=== PATIENT | female | born 1995 | race African-American/Black ===

== ENCOUNTER 2017-11-18 20:38 | Inpatient (IN) | payer OTHER ==
[~2017-11-18] VITALS: Ht 170.2 cm; Wt 68.0 kg
--- NOTE | 2017-11-18 20:50 | ED PSYCHIATRIC COMPLAINT ---
History of Present Illness General Chief Complaint: Psychiatric Related Complaint Stated Complaint: BIBA FOR +SI Source: patient, EMS, police Exam Limitations: clinical condition Vital Signs & Intake/Output Vital Signs & Intake/Output Vital Signs Date Time Temp Pulse Resp B/P B/P Pulse O2 O2 Flow FiO2 Mean Ox Delivery Rate 11/19 0020 99 18 132/71 99 Room Air 11/18 2300 98.5 114 18 138/79 98 Room Air 11/18 2047 98.2 102 22 152/89 100 Room Air ED Intake and Output 11/19 0000 11/18 1200 Intake Total Output Total Balance Patient 140 lb Weight Weight Estimated Measurement Method Allergies Coded Allergies: NO KNOWN ALLERGIES (11/18/17) Reconcile Medications Acetaminophen/Diphenhydramine (Tylenol Pm Ex-Strength Caplet) (Unknown Strength) TABLET (Unknown Dose) PO UNKNOWN (Reported) Triage Nurses Notes Reviewed? yes Onset: Gradual Duration: hour(s): Timing: recent history Severity: moderate Associated Symptoms: suicidal ideation, confusion HPI: 22 yo woman BIBA on police peer after ingestion of 2 bottles of nyquil this evening. Per police, she also took 8 ibuprofens sometime earlier in the afternoon. After taking the nyquil, she retreated to a [place] and contacted her friends. Her friends called 911. She presents altered, somnolent, but able to ambulate and easily aroused, with limited ability to articulate a history. Past History Travel History Traveled to [place] past 21 day No Medical History Any Pertinent Medical History? see below for history Psychiatric: bipolar disease, depression History of CDIFF: No Surgical History Surgical History: unobtainable Psychosocial History What is your primary language Slovak Family History Hx Contributory? No Review of Systems Review of Systems Constitutional: Denies: see HPI. EENTM: Reports: no symptoms. Respiratory: Reports: no symptoms. Cardiovascular: Reports: no symptoms. GI: Reports: no symptoms. Genitourinary: Reports: no symptoms. Musculoskeletal: Reports: no symptoms. Skin: Reports: no symptoms. Neurological/Psychological: Reports: no symptoms. Hematologic/Endocrine: Reports: no symptoms. Immunologic/Allergic: Reports: no symptoms. All Other Systems: Reviewed and Negative Physical Exam Physical Exam General Appearance: lethargic Head: atraumatic Eyes: Bilateral: PERRL, EOMI. Ears, Nose, Throat: normal pharynx, normal ENT inspection, hearing grossly normal Neck: normal inspection, supple Respiratory: normal breath sounds, chest non-tender, no respiratory distress, quiet respiration, lungs clear Cardiovascular: regular rate/rhythm Gastrointestinal: normal bowel sounds Extremities: normal range of motion Neurological/Psychiatric: lethargic, confused, axox0, flat affect. Appearance/Memory/Insight: disheveled, impaired insight Behavoir/Eye Contact/Speech: avoids eye contact, cooperative Thoughts/Hallucinations: no apparent hallucination Skin: intact, normal color, warm/dry SAD PERSONS SAD PERSONS Response Value Depression/Hopelessness? yes 2 Excessive Ethanol/Drug Use? yes 1 Rational Thinking Loss? yes 2 Organized/Serious Attempt yes 2 Social Support? has support 0 Total 7 SAD PERSONS Done? yes Progress Differential Diagnosis: drug intoxication, drug overdose, si, depression Plan of Care: Orders Procedure Date/time Status Regular Diet 11/19 B Active PROTHROMBIN TIME 11/19 2129 Active BASIC ELECTROLYTES PLUS BUN&CR 11/19 2129 Active TRNSFRAS ALANINE AMINO 11/19 2129 Active PROTHROMBIN TIME 11/19 929 Active TRNSFRAS ALANINE AMINO 11/19 929 Active CBC WITHOUT DIFFERENTIAL 11/19 06 Active BASIC ELECTROLYTES PLUS BUN&CR 11/19 06 Active Weight 11/19 0138 Active Vital Signs 11/19 137 Active Teach/Educate 11/19 137 Active Pain Treatment and Response 11/19 137 Active Nutritional Intake, Monitor 11/19 137 Active Isolation 11/19 137 Active Intake & Output 11/19 137 Active Patient Care Conference 11/198 Active Activity/Ambulation 11/198 Active Nothing by Mouth 11/18 D Complete XRY-PORTABLE CHEST XRAY 11/18 2329 Active URINALYSIS 11/18 2329 Active Pathway - chart 11/18 2256 Active House Staff 11/18 2256 Active Patient Data 11/18 2256 Active Code Status 11/18 2256 Active Patient Data 11/19 2255 Active Saline Lock 11/18 2232 Active Misc Message 11/18 2232 Active ED Holding Orders 11/18 2232 Active Admit to inpatient 11/18 2232 Active Vital Signs 11/18 2232 Active Code Status 11/18 2232 Complete EKG 11/19 2219 Active Continuous Observation Monitor 11/18 2049 Active URINE DRUG SCREEN FOR ER ONLY 11/18 2049 Complete ACETOMINOPHEN 11/18 2049 Complete SALICYLATE 11/18 2049 Complete HUMAN BETA HCG SCREEN 11/18 2049 Complete ETHANOL 11/18 2049 Complete COMPREHENSIVE METABOLIC PANEL 11/18 2049 Complete CBC WITHOUT DIFFERENTIAL 11/18 2049 Complete ED CRISIS PSYCH CONSULT 11/18 2049 Active VTE Mechanical Prophylaxis 11/18 UNK Active Vital Signs 11/18 UNK Active Intake & Output 11/18 UNK Active Activity/Ambulation 11/18 UNK Active Current Medications Sig/Gena Start time Last Medication Dose Stop Time Status Admin Acetylcysteine 6,400 MG ONCE ONE 11/19 0400 AC (Acetadote) 11/19 2030 Dextrose/Water 1,000 ML (D5W 1000) Acetylcysteine 3,200 MG ONCE ONE 11/19 0130 AC 11/19 (Acetadote) 11/19 0537 0146 Dextrose/Water 500 ML (D5W) Ondansetron HCl 4 MG Q6P PRN 11/19 0015 AC 11/19 (Zofran) 0021 Dextrose/Water 1,000 ML Q20H 11/18 2345 AC 11/19 (D5W 1000) 0006 Laboratory Tests 11/18/17 2236: Urine Opiates Screen < 100, Methadone Screen 58, Barbiturate Screen < 60, Ur Phencyclidine Scrn < 6.00, Amphetamines Screen < 100, U Benzodiazepines Scrn < 85, Urine Cocaine Screen < 50, Urine Cannabis Screen < 5.00 11/18/17 2130: Anion Gap 14, Estimated GFR > 60, BUN/Creatinine Ratio 18.6, Glucose 68, Calcium 9.9, Total Bilirubin 0.2, AST 41 H, ALT 25, Alkaline Phosphatase 78, Total Protein 7.4, Albumin 4.2, Globulin 3.2, Albumin/Globulin Ratio 1.3, Total Beta HCG NEGATIVE, CBC w Diff NO MAN DIFF REQ, RBC 4.64, MCV 70.6 L, MCH 22.4 L, MCHC 31.7 L, RDW 14.8 H, MPV 10.0, Gran % 68.6, Lymphocytes % 21.3, Monocytes % 7.1, Eosinophils % 2.5, Basophils % 0.5, Absolute Granulocytes 3.6, Absolute Lymphocytes 1.1 L, Absolute Monocytes 0.4, Absolute Eosinophils 0.1, Absolute Basophils 0, Salicylates < 1.0, Acetaminophen 138.0 *H, Serum Alcohol < 10.0 Radiology Impression: pending. Initial ED EKG: sinus tach, no acute changes. Departure Departure Disposition: STILL A PATIENT Condition: Stable Clinical Impression Primary Impression: Suicidal overdose Secondary Impressions: Acetaminophen overdose Referrals: Harman Ahumada DO (PCP/Family) Departure Forms: Customer Survey General Discharge Information Comments 11/18/17, 22:20... elevated acetaminophen level noted... uncertain of patient's dose or time of ingestion.... discussed with poison control... will implement mucomyst protocol and admit. of note, in the bottom of her bag were found several loose pills of tylenol PM. Admission Note Spoke With: Letty Pereira MDarnol Documentation of Exam: Documentation of any treatments & extenuating circumstances including Concerns Regarding Discharge (functional status, medication knowledge or non-compliance, living conditions, etc.) that warrant an admission rather than observation: pt with elevated acetaminophen level, of uncertain time of onset/dose... discussed with poison control, pt merits mucomyst per protocol, psyche consult in AM. Critical Care Note Critical Care Note Critical Care Time: 30-74 min
[2017-11-18 21:39] LABS: ABSOLUTE BASOPHIL COUNT 0 /CUMM (0.0-0.2); ABSOLUTE EOSINOPHIL COUNT 0.1 /CUMM (0.0-0.7); ABSOLUTE GRANULOCYTE CT 3.6 /CUMM (1.4-6.5); ABSOLUTE LYMPH COUNT 1.1 /CUMM (1.2-3.4); ABSOLUTE MONOCYTE COUNT 0.4 /CUMM (0.10-0.60); BASOPHIL % 0.5 % (0.0-2.0); EOSINOPHIL % 2.5 % (0-5); GRANULOCYTE % 68.6 % (42.2-75.2); HEMATOCRIT 32.8 % (37-47); MEAN CORPUSCULAR HGB 22.4 PG (27.0-31.0); MEAN CORPUSCULAR HGB CONC 31.7 G/DL (33.0-37.0); MEAN CORPUSCULAR VOLUME 70.6 FL (81.0-99.0); PLATELET COUNT 296 /CUMM (130-400); RBC DISTRIBUTION WIDTH 14.8 % (11.5-14.5); RED BLOOD CELL CT 4.64 /CUMM (4.20-5.40); WHITE BLOOD CELL COUNT 5.2 /CUMM (4.8-10.8)
[2017-11-18] MEDS ORDERED: TYLENOL PM EX-1 EACH PO (23:01)
--- NOTE | 2017-11-18 23:35 | History & Physical ---
Jerome Mc MD 11/18/17 8254: General Information and [facility] MD Statement: I have seen and personally examined CARLOS ANDERSON and documented this H&P. The patient is a 22 year old F who presented with a patient stated chief complaint of suicide attempt/toxic ingestion. Source of Information: old records, friend Exam Limitations: clinical condition History of Present Illness: 22 year old female with past medical history significant for depression and previous suicide attempt from pill overdose and psychiatric hospitalization in 2013 was brought in by police after being found with an altered mental status after an intentional overdose. The patient is unable to provide any history and all history was obtained from ED notes and the patient's friend Ashlee, who was at the bedside and was in communication with the patient throughout the evening. She was speaking and texting with Ashlee from approximately 4-7PM this evening. The patient had [place] herself at the [place] in [place] and ingestions an unknown quantity of an unknown pill. At 7PM, she informed her friend that she had done this. Ashlee called the police and the patient was brought into the emergency department, minimally responsive and noncommunicative and with normal vital signs except for tachycardia. Tylenol PM was found in the patient's belongings and was detectable in her drug screen. She was started on N-acetyl cysteine therapy. Collateral information was obtained from her mother. She was previously hospitalized at [facility] children psych unit in 2013. She participated in group therapy at that time. She had some aftercare at [facility] and they were considering family therapy but didn't follow through. She left [facility] in June and is now working two jobs and thinking about becoming an international student. Things were reportedly going well. She has no psychiatrist, no psych meds, or no recent therapy. She reportedly has a strained relationship with her mother and feels she isn't loved. After an argument at the house between her brother, herself, and her grandmother, she left the house before all this happened. The mother is an hour out of town and became aware her daughter was hospitalized because the police notified her grandmother. Allergies/Medications Allergies: Coded Allergies: NO KNOWN ALLERGIES (11/18/17) Home Med list Acetaminophen/Diphenhydramine (Tylenol Pm Ex-Strength Caplet) (Unknown Strength) TABLET (Unknown Dose) PO UNKNOWN (Reported) Compliance With Home Meds: GOOD Past History Travel History Traveled to [place] past 21 day No Medical History Psychiatric: bipolar disease, depression History of CDIFF: No Isolation History: Standard Surgical History Surgical History: unobtainable Past Family/Social History Family History Relations & Conditions if any Family history was reviewed; no changes noted. Functional Ability ADLs Independent: dressing, eating, toileting, bathing. Ambulation: independent IADLs Independent: shopping, housework, finances, food prep, telephone, transportation , medication admin. Review of Systems Review of Systems Constitutional: Reports: see HPI. Exam & Diagnostic Data Last 24 Hrs of Vital Signs/I&O Vital Signs Date Time Temp Pulse Resp B/P B/P Pulse O2 O2 Flow FiO2 Mean Ox Delivery Rate 11/18 2300 98.5 114 18 138/79 98 Room Air 11/18 2046 98.2 102 22 152/89 100 Room Air Intake & Output 11/19 0800 06 0000 11/18 1600 Intake Total Output Total Balance Patient 63.503 kg Weight Weight Estimated Measurement Method Physical Exam General Appearance No Acute Distress, awake no distress, intermittently follows basic commands (hand grasp), not verbally responsive but spontaneously opens eyes Cardiovascular Normal S1, Normal S2, No Murmurs, tachycardic Lungs Clear to Auscultation, Normal Air Movement Abdomen Normal Bowel Sounds, Soft, No Tenderness, No Masses Neurological nonfocal Extremities No Clubbing, No Cyanosis, No Edema, Normal Pulses Last 24 Hrs of Labs/South: Laboratory Tests 11/18/17 2236: Urine Opiates Screen < 100, Methadone Screen 58, Barbiturate Screen < 60, Ur Phencyclidine Scrn < 6.00, Amphetamines Screen < 100, U Benzodiazepines Scrn < 85, Urine Cocaine Screen < 50, Urine Cannabis Screen < 5.00 11/18/17 2130: Anion Gap 14, Estimated GFR > 60, BUN/Creatinine Ratio 18.6, Glucose 68, Calcium 9.9, Total Bilirubin 0.2, AST 41 H, ALT 25, Alkaline Phosphatase 78, Total Protein 7.4, Albumin 4.2, Globulin 3.2, Albumin/Globulin Ratio 1.3, Total Beta HCG NEGATIVE, CBC w Diff NO MAN DIFF REQ, RBC 4.64, MCV 70.6 L, MCH 22.4 L, MCHC 31.7 L, RDW 14.8 H, MPV 10.0, Gran % 68.6, Lymphocytes % 21.3, Monocytes % 7.1, Eosinophils % 2.5, Basophils % 0.5, Absolute Granulocytes 3.6, Absolute Lymphocytes 1.1 L, Absolute Monocytes 0.4, Absolute Eosinophils 0.1, Absolute Basophils 0, Salicylates < 1.0, Acetaminophen 138.0 *H, Serum Alcohol < 10.0 Diagnostic Data EKG Results sinus tachycardia without ischemic changes CXR Results pending Assessment/Plan Assessment: 22 year old female with history of depression, previous suicide attempt was brought in by police with an altered mental status after an intentional toxic ingestion and apparent suicide attempt. Altered mental status: Toxic ingestion likely metabolic encephalopathy from polypharmacy tylenol PM overdose acetaminophen level 138 Start N-acetyl cysteine treatment per protocol Monitor renal function, LFTs, coags Psychiatry consultation 1:1 patient safety monitor Tachycardia: Sinus, uncertain etiology Check chest x-ray, urinalysis Repeat 12 lead EKG tomorrow Patient does have hypernatremia but clinically doesn't appear hypovolemic Start D5W @ 100cc/hr See if HR improves with intravascular volume resuscitation Hypernatremia: Sodium 147 on presentation Start IVFs Check urine osmoles, TSH Consider diabetes insipidus if low urine osmoles, monitor urine output NPO DVT ppx-ALPS, lovenox subcutaneous Full code As Ranked By This Provider Problem List: 1. Acetaminophen overdose 2. Suicidal overdose Core Measures/Misc (02/27) Acute Coronary Syndrome ACS Diagnosis: No Congestive Heart Failure Congestive Heart Failure Diagnosis No Cerebrovascular Accident CVA/TIA Diagnosis: No VTE (View Protocol) VTE Risk Factors Acute Medical Illness No Mechanical VTE Prophylaxis d/t N/A MechProphylax Ordered No VTE Pharm Prophylaxis d/t NA PharmProphylax ordered Sepsis (View protocol) Sepsis Present: No If YES complete Sepsis Event Note If YES complete Sepsis Event Note Gregory LANZA,Brissa 11/19/17 0207: Core Measures/Misc (02/27) Sepsis (View protocol) If YES complete Sepsis Event Note If YES complete Sepsis Event Note Resident Review Statement Resident Statement: examined this patient, discussed with internal communications intern, agreed with internal communications intern, discussed with family, reviewed EMR data (avail), discussed with nursing , discussed with case mgmt, reviewed images, amended to note Other Findings: Patient is a 22 YO F with PMH significant for depression, previous suicide attempt from pill overdose was BIBA to [facility] with altered mentation. She was found in [place] by friends/mems engineer after overdosing with possible Nyquil PM. Patient called her friend after overdosing and finally got a hold of her with the help of mems engineer. History is obtained from the friend, apparently some family stressors going on for a while and per friend patient feels not well taken care by family. Patient is currently not on any treatment. VS at presentation 98.2, HR 102, BP 152/89mmHg, saturating well on RA. Physical exam - patient is altered, had jerky movements, able to follow commands to bare minimun. Heart - S1, S2 normal, chest clear, abdomen nontender, minimal distention. Labs are significant for Tox screen of 138 tylenol, Microcytic anemia, hypernatremia, BUN/Cr 13/0.7, AST/ALT - 41/25, PT pending. CXR pending. Problem list 1. Drug overodse -- Possibly Tylenol 2. Suicide attempt 3. Hypernatremia Plan Admit to general medicine floor Altered mental status in the setting of Toxic encephalopathy Secondary to drug overdose. IV N-acetylcysteine protocol 20hrs. Check LFT's, Tyelnol level tomorrow AM. Typically 3hrs prior to last treatment BEP, INR, LFT and tylenol levels are checked, if remains elevated consider one more IV round of N-acetyl cysteine. Monitor closely. Repeat EKG and troponin in am. Suicide attempt Patient had family stressors leading to drastic consequences. Definetely merits psych input and admission after this episode. Patient safety monitor in place. Hypernatremia Na 149, probably dehydration. Vomited in ER. D5NS @100ml/hr for now. DVT prophylaxis SC heparin Code status full code Mother is aware of admission. Randall LANZA, [facility] 11/19/17 0259: Core Measures/Misc (02/27) Sepsis (View protocol) If YES complete Sepsis Event Note If YES complete Sepsis Event Note Attending MD Review Statement Attending Statement Attending MD Statement: examined this patient, discuss w/resident/PA/HEAD OF DIGITAL, agreed w/resident/PA/HEAD OF DIGITAL, reviewed images, amended to note Attending Assessment/Plan: 22 yo F with h/o major depression, multiple previous suicide attempts with drug OD (2013), was brought in by police on [place] after ingesting 2 packs of Nyquil this evening. She was noted to be altered, non responding to verbal cues and staring around. History was obtained from patient's friend Ashlee. Around 7 pm, patient texted Ashlee that she had taken 2 packs of Nyquil and another medication (unknown ?ibuprofen). Ashlee facetimed with patient and was able to identify that she was at [facility]. Ashlee then called the police, who found patient altered and somnolent. At the bottom of her bag, loose pills of Tylenol PM were found. Ashlee states that patient does not have a good relation with her mother, even though patient lives with her mother. Please refer to remaining history as presented in Dr. Mc's note. Vitals: stable except for tachycardia to 120's. Exam: patient is awake,lethargic , does not respond to verbal cues, stares with flat affect. Tachycardic, limited exam as patient does not follow commands, Chest clear. Labs: no leukocytosis, microcytic anemia, H/H 10.4/32.8, Plt 296, Na 149, BUN 13 , Creat 0.7, T. Bili 0.2, AST 41, ALT 25, glucose 68, beta HCG negative. Urine tox negative. Salicylate <1.0, Alcohol <10. Tylenol levels 138. EKG: sinus tachycardia, nonspecific T wave abnormalities, Qtc 448. Assessment and plan: 1. Intentional drug overdose suicide attempt 2. Tylenol toxicity 3. Toxic-metabolic encephalopathy 4. Major depression 5. Hypernatremia - Admit to General medicine - Keep NPO, aspiration precuations - Neurochecks Q2 - NAC-protocol initiated in ER, will continue - Contact Poison control - Check Tylenol levels, PT/INR and LFTs as per protocol - Maintain 1:! sitter - Psych consult - IV hydration D5NS @ 100/hr - Recheck EKG and troponin in AM - Check urinalysis and CXR to rule out infection/ aspiration - GI ppx Protonix - Anti-emetics as needed DVT ppx Lovenox. Full code.
--- NOTE | 2017-11-19 01:53 | Admission Certification ---
Admission Certification Certification Statement - As attending physician, I certify that at the time of - admission, based on clinical presentation, severity of - symptoms, need for further diagnostic testing and - therapeutic interventions, and risk of adverse outcomes - without in-hospital treatment, in my clinical assessment, - this patient requires an acute hospital stay for a minimum - of two nights or longer. I have also considered psychsocial - factors such as support system, advanced age, financial - issues, cognitive issues, and failed out-patient treatments, - past re-admission history, safety of patient, and lack of - compliance as applicable. Specific rationale supporting this admission is: Tylenol overdose
--- NOTE | 2017-11-19 04:48 | RADIOLOGY REPORT ---
EXAMINATION: XR PORTABLE CHEST CLINICAL INFORMATION: Toxic ingestion, altered mentation. Rule out acute pneumonitis/pneumonia. COMPARISON: None TECHNIQUE: Portable AP erect view of the chest was obtained. FINDINGS: The cardiomediastinal silhouette is enlarged, likely related to AP technique and low lung volumes. Lungs bilaterally are hypoinflated with crowding of bronchovascular markings in the lung bases bilaterally. No focal consolidation, effusion or pneumothorax is seen. Bony structures are unremarkable. IMPRESSION: Limited study due to low lung volumes and AP technique. Cardiac silhouette is prominent and bibasilar increased reticular opacities are seen, likely related to crowding of bronchovascular markings/subsegmental atelectasis. Consider repeat PA and lateral views of the chest with larger inspiration for more sensitive assessment.
--- NOTE | 2017-11-19 05:22 | PN- Housestaff ---
Subjective Follow-up For: suicide attempt by toxic ingestion suspected tylenol toxicity/overdose altered mental status suicidal ideation Subjective: patient awake and alert this morning, asnwering questions, although still has waxing and waning level of attention, lacks insight into her SI tachycardia improved on d5w for hypernatremia and N-acetyl cysteine vomited overnight Review of Systems Constitutional: Reports: see HPI. Objective Last 24 Hrs of Vital Signs/I&O Vital Signs Date Time Temp Pulse Resp B/P B/P Pulse O2 O2 Flow FiO2 Mean Ox Delivery Rate 11/19 0020 99 18 132/71 99 Room Air / 2300 98.5 114 18 138/79 98 Room Air 11/18 2047 98.2 102 22 152/89 100 Room Air Intake & Output 11/19 0800 11/19 0000 11/18 1600 Intake Total Output Total Balance Patient 68.039 kg 63.503 kg Weight Weight Bed scale Estimated Measurement Method Physical Exam General Appearance: No Acute Distress, following commands intermittently, nonfocal exam, opens eyes spontaneously Neck: Supple, No JVD Cardiovascular: Regular Rate, Normal S1, Normal S2, No Murmurs Lungs: Clear to Auscultation, Normal Air Movement Abdomen: Normal Bowel Sounds, Soft, No Tenderness, No Masses Extremities: No Clubbing, No Cyanosis, No Edema, Normal Pulses Current Medications: Current Medications Sig/Gena Start time Last Medication Dose Route Stop Time Status Admin Acetylcysteine 6,400 MG ONCE ONE 11/19 0530 AC Dextrose/Water 1,000 ML IV 11/19 2200 Acetylcysteine 6,400 MG ONCE ONE 11/19 0400 DC Dextrose/Water 1,000 ML IV 11/19 2030 Acetylcysteine 3,200 MG ONCE ONE 11/19 0130 DC 11/19 Dextrose/Water 500 ML IV 11/19 0537 0146 Acetylcysteine 3,200 MG ONCE ONE 11/19 0000 DC Dextrose/Water 500 ML IV 11/19 0407 Acetylcysteine 10,500 MG ONCE ONE 11/18 2300 DC 11/18 Dextrose/Water 200 ML IV 11/19 0015 2336 Dextrose/Sodium 1,000 ML Q10H 11/19 0300 AC 11/19 Chloride IV 0334 Dextrose/Water 1,000 ML Q20H 11/18 2345 DC 11/19 IV 0006 Ondansetron HCl 0 .STK-MED ONE 11/19 0025 DC .ROUTE Ondansetron HCl 4 MG Q6P PRN 11/19 0015 AC 11/19 IV 0021 Last 24 Hrs of Lab/South Results Last 24 Hrs of Labs/Mics: Laboratory Tests 11/18/17 2236: Urine Opiates Screen < 100, Methadone Screen 58, Barbiturate Screen < 60, Ur Phencyclidine Scrn < 6.00, Amphetamines Screen < 100, U Benzodiazepines Scrn < 85, Urine Cocaine Screen < 50, Urine Cannabis Screen < 5.00, Urinalysis LIGHT H , Urine Color YEL, Urine Clarity CLEAR, Urine pH 7.0, Ur Specific [place] 1.010, Urine Protein NEG, Urine Ketones NEG, Urine Nitrite NEG, Urine Bilirubin NEG, Urine Urobilinogen 0.2, Ur Leukocyte Esterase NEG, Ur Microscopic SEDIMENT EXAMINED, Urine RBC 5-10 H, Urine WBC RARE, Ur Epithelial Cells RARE, Urine Bacteria FEW H, Urine Hemoglobin MOD H, Urine Glucose NEG 11/18/17 2130: Anion Gap 14, Estimated GFR > 60, BUN/Creatinine Ratio 18.6, Glucose 68, Calcium 9.9, Total Bilirubin 0.2, AST 41 H, ALT 25, Alkaline Phosphatase 78, Total Protein 7.4, Albumin 4.2, Globulin 3.2, Albumin/Globulin Ratio 1.3, Total Beta HCG NEGATIVE, CBC w Diff NO MAN DIFF REQ, RBC 4.64, MCV 70.6 L, MCH 22.4 L, MCHC 31.7 L, RDW 14.8 H, MPV 10.0, Gran % 68.6, Lymphocytes % 21.3, Monocytes % 7.1, Eosinophils % 2.5, Basophils % 0.5, Absolute Granulocytes 3.6, Absolute Lymphocytes 1.1 L, Absolute Monocytes 0.4, Absolute Eosinophils 0.1, Absolute Basophils 0, Salicylates < 1.0, Acetaminophen 138.0 *H, Serum Alcohol < 10.0 Assessment/Plan Assessment: 22 year old female with history of depression, previous suicide attempt was brought in by police with an altered mental status after an intentional toxic ingestion and apparent suicide attempt. Altered mental status: Toxic ingestion likely metabolic encephalopathy from polypharmacy tylenol PM overdose acetaminophen level 138 Continue N-acetyl cysteine treatment per protocol Monitor renal function, LFTs, coags Psychiatry consultation 1:1 patient safety monitor Tachycardia: Sinus, uncertain etiology Check chest x-ray, urinalysis Repeat 12 lead EKG tomorrow Patient does have hypernatremia but clinically doesn't appear hypovolemic Continue D5W See if HR improves with intravascular volume resuscitation Hypernatremia: Sodium 147 on presentation Start IVFs Check urine osmoles, TSH Consider diabetes insipidus if low urine osmoles, monitor urine output Trend sodium levels Regular diet-vegan now that mental status improved DVT ppx-ALPS, lovenox subcutaneous Full code Problem List: 1. Acetaminophen overdose 2. Suicidal overdose 3. Depression Pain Ratin Pain Location: n/a Pain Goal: Pain 4 or less Pain Plan: prn Tomorrow's Labs & Rationales: bep, cbc, lfts, inr
[2017-11-19 06:00] VITALS: BP 139/77
--- NOTE | 2017-11-19 08:21 | PN- Att Addend ---
Attending Addendum Attending Brief Note Patient seen and examined. Nursing staff reports that she is more alert this morning compared to presentation. She is alert but appears disoriented. She has a very flat affect, staring into the distance. When asked questions she answers inappropriately. She was going on about a [address] in [facility]. She was unable to clearly verbalize why she is in the hospital. She is very fidgety. Vital Signs Date Time Temp Pulse Resp B/P B/P Pulse O2 O2 Flow FiO2 Mean Ox Delivery Rate 11/19 0600 96.2 83 18 139/77 100 Nasal Cannula 11/19 0020 99 18 132/71 99 Room Air 11/18 2300 98.5 114 18 138/79 98 Room Air 11/18 2047 98.2 102 22 152/89 100 Room Air General appearance: Well-developed and not in any acute distress. HEENT: Anicteric, no pallor, pupils equal and reactive. Neck: Supple with no jugular venous distention. Heart: S1-S2 regular with no audible murmur. Lungs: Adequate and symmetric air entry bilaterally with no added sounds. Abdomen: Nondistended with normal bowel sounds. Soft, nontender with no palpable masses. Extremities: No pedal edema. No cyanosis. Skin: Intact Problems: 1. Drug overdose; at the very least Tylenol. Urine toxicology is otherwise negative. As part of suicide attempt. 2. Bizarre behavior; query medication related. 3. Chronic microcytic anemia 4. Tachycardia; resolved 5. Hypernatremia; resolved Plan: -Follow-up repeat Tylenol level. LFTs remain within normal levels continue to trend per protocol. -Complete N-acetylcysteine protocol. -Recommend evaluation by the psychiatry service. Actually require inpatient psychiatric management due to her suicide attempts. -DC IV fluids. Maintain oral intake. -Check Iron profile.
[2017-11-19 08:28] LABS: PT 13.2 SEC (9.4-12.5)
[2017-11-19 08:36] LABS: ABSOLUTE BASOPHIL COUNT 0 /CUMM (0.0-0.2); ABSOLUTE EOSINOPHIL COUNT 0 /CUMM (0.0-0.7); ABSOLUTE GRANULOCYTE CT 5.6 /CUMM (1.4-6.5); ABSOLUTE MONOCYTE COUNT 0.5 /CUMM (0.10-0.60); BASOPHIL % 0.3 % (0.0-2.0); EOSINOPHIL % 0.3 % (0-5); GRANULOCYTE % 79.2 % (42.2-75.2); HEMATOCRIT 33.6 % (37-47); MEAN CORPUSCULAR HGB 22.5 PG (27.0-31.0); MEAN CORPUSCULAR HGB CONC 31.5 G/DL (33.0-37.0); MEAN CORPUSCULAR VOLUME 71.4 FL (81.0-99.0); MEAN PLATELET VOLUME 11.3 FL (7.4-10.4); RBC DISTRIBUTION WIDTH 14.7 % (11.5-14.5); WHITE BLOOD CELL COUNT 7.1 /CUMM (4.8-10.8)
[2017-11-19 11:27] LABS: PLATELET COUNT 308 /CUMM (130-400)
[2017-11-19 15:01] VITALS: BP 138/96
[2017-11-19 16:55] LABS: PT 14.9 SEC (9.4-12.5)
[2017-11-19 21:59] VITALS: BP 114/62
[2017-11-20 06:53] VITALS: BP 100/50
[2017-11-20 08:26] LABS: PT 13.8 SEC (9.4-12.5)
[2017-11-20 08:39] LABS: ABSOLUTE BASOPHIL COUNT 0 /CUMM (0.0-0.2); ABSOLUTE EOSINOPHIL COUNT 0.2 /CUMM (0.0-0.7); ABSOLUTE LYMPH COUNT 1.5 /CUMM (1.2-3.4); ABSOLUTE MONOCYTE COUNT 0.2 /CUMM (0.10-0.60); BASOPHIL % 0.8 % (0.0-2.0); GRANULOCYTE % 51.1 % (42.2-75.2); HEMATOCRIT 33.5 % (37-47); MEAN CORPUSCULAR HGB 22.8 PG (27.0-31.0); MEAN CORPUSCULAR HGB CONC 32.2 G/DL (33.0-37.0); MEAN CORPUSCULAR VOLUME 70.8 FL (81.0-99.0); MEAN PLATELET VOLUME 10.9 FL (7.4-10.4); PLATELET COUNT 288 /CUMM (130-400); RBC DISTRIBUTION WIDTH 14.8 % (11.5-14.5); RED BLOOD CELL CT 4.73 /CUMM (4.20-5.40); WHITE BLOOD CELL COUNT 3.9 /CUMM (4.8-10.8)
--- NOTE | 2017-11-20 08:47 | PN- Housestaff ---
Ronnie LANZA,Keiry 11/20/17 0847: Subjective Follow-up For: Suicide attempt Suicidal ideations Tylenol toxicity Subjective: Patient was seen and examined today. Patient is awake and alert- resting comfortably in bed. Reports she feels well. Denies abdominal pain, n/v, fever/ chills, chest pain, shortness of breath. Patient denies SI/HI to me but has reported to the psychiatrist today that she is having thoughts of suicide. Review of Systems Constitutional: Reports: see HPI. Objective Last 24 Hrs of Vital Signs/I&O Vital Signs Date Time Temp Pulse Resp B/P B/P Pulse O2 O2 Flow FiO2 Mean Ox Delivery Rate 11/20 1357 99.1 69 20 102/54 100 Room Air 11/20 0653 98.6 59 18 100/50 100 Room Air 11/19 2159 98.1 63 114/62 94 Room Air Intake & Output 11/20 1600 11/20 0800 06 0000 Intake Total 250 200 747 Output Total 0 Balance 250 200 747 Intake, IV 447 Intake, Oral 250 200 300 Number 1 0 Bowel Movements Output, Urine 0 Physical Exam General Appearance: Alert, Oriented X3, Cooperative, No Acute Distress Skin Temp/Moisture Exam: Warm/Dry HEENT: Atraumatic, Mucous Membr. moist/pink Cardiovascular: Regular Rate, Normal S1, Normal S2 Lungs: Clear to Auscultation, Normal Air Movement Abdomen: Normal Bowel Sounds, Soft, No Tenderness, No Hepatospenomegaly, No Masses Current Medications: Current Medications Sig/Gena Start time Last Medication Dose Route Stop Time Status Admin Acetylcysteine 6,400 MG ONCE ONE 11/19 0530 DC 11/19 Dextrose/Water 1,000 ML IV 11/19 2200 0632 Enoxaparin Sodium 40 MG DAILY 11/19 899 AC 11/20 SC 0945 Escitalopram Oxalate 10 MG DAILY 11/20 1600 AC 11/20 PO 1623 Hydroxyzine HCl 50 MG TID PRN 11/20 1600 AC PO Omeprazole 40 MG DAILY AC 11/19 0700 AC 11/20 PO 0658 Ondansetron HCl 4 MG Q6P PRN 11/19 0015 AC 11/19 IV 0021 Last 24 Hrs of Lab/South Results Last 24 Hrs of Labs/Mics: Laboratory Tests 11/20/17 0730: Anion Gap 11, Estimated GFR > 60, BUN/Creatinine Ratio 20.0, Iron 147, TIBC 396, Ferritin 21.0, Total Bilirubin 0.4, Direct Bilirubin 0.1, AST 27, ALT 23, Alkaline Phosphatase 72, Total Protein 6.8, Albumin 3.7, PT 13.8 H, INR 1.26 H , CBC w Diff NO MAN DIFF REQ, RBC 4.73, MCV 70.8 L, MCH 22.8 L, MCHC 32.2 L, RDW 14.8 H, MPV 10.9 H, Gran % 51.1, Lymphocytes % 37.8, Monocytes % 6.3, Eosinophils % 4.0, Basophils % 0.8, Absolute Granulocytes 2.0, Absolute Lymphocytes 1.5, Absolute Monocytes 0.2, Absolute Eosinophils 0.2, Absolute Basophils 0 11/19/172111: Total Bilirubin 0.3, Direct Bilirubin 0.1, AST 26, ALT 18, Alkaline Phosphatase 64, Total Protein 6.6, Albumin 3.5 Assessment/Plan Assessment: 22 year old female with history of depression, previous suicide attempt was brought in by police with an altered mental status after an intentional toxic ingestion and apparent suicide attempt. Tylenol overdose and Suicide attempt Toxic ingestion likely metabolic encephalopathy from polypharmacy tylenol PM overdose acetaminophen level 138 --> level today <10 Completed N-acetyl cysteine treatment per protocol Monitor renal function, LFTs, coags Psychiatry consulted due to suicide attempt. - Patient cannot leave AMA - Will require inpatient psych once bed is available 1:1 patient safety monitor Tachycardia: Resolved Hypernatremia: Resolved Regular diet-vegan now that mental status improved DVT ppx-ALPS, lovenox subcutaneous Full code Problem List: 1. Acetaminophen overdose 2. Suicidal overdose Pain Ratin Pain Location: n/a Pain Goal: Remain pain free Pain Plan: n/a Tomorrow's Labs & Rationales: none-stable Guicho Bo MD 11/20/17 1008: Attending MD Review Statement Attending Statement Attending MD Statement: examined this patient, discuss w/resident/PA/DIGITAL FORENSICS INVESTIGATOR, agreed w/resident/PA/DIGITAL FORENSICS INVESTIGATOR, reviewed EMR data (avail), discussed with nursing, amended to note Attending Assessment/Plan: Patient seen and examined. This morning she appears more oriented. She answers questions appropriately. She does not been disoriented compared to yesterday. She continues to have a flat affect. Fortunately her Tylenol level has trended down to 0 and her LFTs remained within normal limits. She has no abdominal tenderness on examination. From a medical standpoint she is medically stable to be discharged however for the disposition will be determined by the psychiatric service. Due to her suicidal ideation at current flat affect and makes it difficult to determine at current state of mind, she will benefit from further management in the inpatient psychiatric service. We are currently awaiting evaluation by the psychiatric service.
--- NOTE | 2017-11-20 13:35 | Cons- Psychiatry ---
Psychiatric Consult Date of Consult: 11/20/17 Reason for Consult: s/o intentional overdose History of Present Illness: Pt notes that "upset" but unable to specify why and took intentional overdose with intent to . "Disappointed" that alive now. Continues to have pssive SI. Notes no clear stressors other than difficult relationship with mother and ongoing untreated depression and anxiety. Denies manic,psychotic, or TRS. Allergies: Coded Allergies: NO KNOWN ALLERGIES (11/18/17) Current Medications: Current Medications Sig/Gena Start time Last Medication Dose Route Stop Time Status Admin Acetylcysteine 6,400 MG ONCE ONE 11/19 0530 DC 11/19 Dextrose/Water 1,000 ML IV 11/19 2200 0632 Enoxaparin Sodium 40 MG DAILY 11/19 899 AC 11/20 SC 0945 Omeprazole 40 MG DAILY AC 11/19 0700 AC 11/20 PO 0658 Ondansetron HCl 4 MG Q6P PRN 11/19 0015 AC 11/19 IV 0021 Past History Past Medical History Psychiatric: bipolar disease, depression Past Surgical History Surgical History: unobtainable Psychiatric Treatment History Psych Treatment Psychiatric Treatment Yes ([facility] years ago) Inpatient Treatment Yes (unable to recall, in HS) Outpatient Treatment No (not currently) Diagnosis: MDD Unspec anxiety Risk Factors: age (under 24/over 65), high anxiety/distress, history of suicide atmpts, SA/MH hospitalized, isolate/no social support, poor impulse control, lack of outcome concern, limited support Substance Use/Abuse History Drug Use/Abuse Substances Used/Abused No Substance Abuse Treatment Substance Abuse Treatment Past Substance Abuse [place] No Assessment/Plan Mental Status Orientation: Person, Place, Situation Affect: Flat (tearful), Hopeless Speech: WNL Neuro-vegetative: Appetite Decreased, Concentration Poor, Energy Decreased, Helpless, Loss of Interest, Sleep Disturbance Mental Status Exam: MSE General appearance: good hygiene and grooming; Attitude: cooperative; Eye contact: appropriate; Movement: no psychomotor agitation or slowing; Speech: nl fluency, nl rate/rhythm, nl volume, nl prosody; Mood: "bad" Affect: still very irritable, flat, appropriate, constricted, non-labile, congruent, very tearful; Thought process: linear and goal-directed; Thought content: ++ SI, denied HI, no paranoid ideation; Perception: denied hallucinations- auditory, visual, does not appear to be responding to internal stimuli; I/J: limited Lab Results: Laboratory Tests 11/20 11/19 11/19 0730 2130 2112 Chemistry Sodium (137 - 145 mmol/L) 142 Potassium (3.5 - 5.1 mmol/L) 4.3 Chloride (98 - 107 mmol/L) 106 Carbon Dioxide (22 - 30 mmol/L) 25 Anion Gap (5 - 16) 11 BUN (7 - 17 mg/dL) 14 Creatinine (0.5 - 1.0 mg/dL) 0.7 Estimated GFR (>60 ml/min) > 60 BUN/Creatinine Ratio (7 - 25 %) 20.0 Iron (37 - 170 ug/dL) 147 TIBC (265 - 497 ug/dL) 396 Ferritin (6.24 - 137 ng/mL) 21.0 Total Bilirubin (0.2 - 1.3 mg/dL) 0.4 0.3 Direct Bilirubin (< 0.4 mg/dL) 0.1 0.1 AST (14 - 36 U/L) 27 26 ALT (9 - 52 U/L) 23 Cancelled 18 Alkaline Phosphatase (<127 U/L) 72 64 Total Protein (6.3 - 8.2 g/dL) 6.8 6.6 Albumin (3.5 - 5.0 g/dL) 3.7 3.5 Coagulation PT (9.4 - 12.5 SEC) 13.8 H Cancelled INR (0.90 - 1.19) 1.26 H Cancelled Hematology CBC w Diff NO MAN DIFF REQ WBC (4.8 - 10.8 /CUMM) 3.9 L RBC (4.20 - 5.40 /CUMM) 4.73 Hgb (12.0 - 16.0 G/DL) 10.8 L Hct (37 - 47 %) 33.5 L MCV (81.0 - 99.0 FL) 70.8 L MCH (27.0 - 31.0 PG) 22.8 L MCHC (33.0 - 37.0 G/DL) 32.2 L RDW (11.5 - 14.5 %) 14.8 H Plt Count (130 - 400 /CUMM) 288 MPV (7.4 - 10.4 FL) 10.9 H Gran % (42.2 - 75.2 %) 51.1 Lymphocytes % (20.5 - 51.1 %) 37.8 Monocytes % (1.7 - 9.3 %) 6.3 Eosinophils % (0 - 5 %) 4.0 Basophils % (0.0 - 2.0 %) 0.8 Absolute Granulocytes (1.4 - 6.5 /CUMM) 2.0 Absolute Lymphocytes (1.2 - 3.4 /CUMM) 1.5 Absolute Monocytes (0.10 - 0.60 /CUMM) 0.2 Absolute Eosinophils (0.0 - 0.7 /CUMM) 0.2 Absolute Basophils (0.0 - 0.2 /CUMM) 0 11/19 11/19 11/19 1800 1605 0930 Chemistry Sodium (137 - 145 mmol/L) Cancelled 142 Potassium (3.5 - 5.1 mmol/L) Cancelled 3.5 Chloride (98 - 107 mmol/L) Cancelled 105 Carbon Dioxide (22 - 30 mmol/L) Cancelled 26 Anion Gap (5 - 16) Cancelled 12 BUN (7 - 17 mg/dL) Cancelled 8 Creatinine (0.5 - 1.0 mg/dL) Cancelled 0.7 Estimated GFR (>60 ml/min) > 60 BUN/Creatinine Ratio (7 - 25 %) Cancelled 11.4 Total Bilirubin (0.2 - 1.3 mg/dL) 0.3 Direct Bilirubin (< 0.4 mg/dL) 0.1 AST (14 - 36 U/L) 30 ALT (9 - 52 U/L) 26 Cancelled Alkaline Phosphatase (<127 U/L) 74 Total Protein (6.3 - 8.2 g/dL) 7.1 Albumin (3.5 - 5.0 g/dL) 3.9 Coagulation PT (9.4 - 12.5 SEC) Cancelled 14.9 H Cancelled INR (0.90 - 1.19) Cancelled 1.36 H Cancelled Toxicology Acetaminophen (10.0 - 30.0 ug/mL) < 10.0 L 11/19 11/18 0720 6096 Chemistry Sodium (137 - 145 mmol/L) 144 Potassium (3.5 - 5.1 mmol/L) 3.6 Chloride (98 - 107 mmol/L) 106 Carbon Dioxide (22 - 30 mmol/L) 24 Anion Gap (5 - 16) 14 BUN (7 - 17 mg/dL) 8 Creatinine (0.5 - 1.0 mg/dL) 0.7 Estimated GFR (>60 ml/min) > 60 BUN/Creatinine Ratio (7 - 25 %) 11.4 Total Bilirubin (0.2 - 1.3 mg/dL) 0.2 Direct Bilirubin (< 0.4 mg/dL) 0.1 AST (14 - 36 U/L) 33 ALT (9 - 52 U/L) 22 Alkaline Phosphatase (<127 U/L) 77 Total Protein (6.3 - 8.2 g/dL) 7.3 Albumin (3.5 - 5.0 g/dL) 4.0 Coagulation PT (9.4 - 12.5 SEC) 13.2 H INR (0.90 - 1.19) 1.21 H Hematology CBC w Diff NO MAN DIFF REQ WBC (4.8 - 10.8 /CUMM) 7.1 RBC (4.20 - 5.40 /CUMM) 4.70 Hgb (12.0 - 16.0 G/DL) 10.6 L Hct (37 - 47 %) 33.6 L MCV (81.0 - 99.0 FL) 71.4 L MCH (27.0 - 31.0 PG) 22.5 L MCHC (33.0 - 37.0 G/DL) 31.5 L RDW (11.5 - 14.5 %) 14.7 H Plt Count (130 - 400 /CUMM) 308 MPV (7.4 - 10.4 FL) 11.3 H Gran % (42.2 - 75.2 %) 79.2 H Lymphocytes % (20.5 - 51.1 %) 13.6 L Monocytes % (1.7 - 9.3 %) 6.6 Eosinophils % (0 - 5 %) 0.3 Basophils % (0.0 - 2.0 %) 0.3 Absolute Granulocytes (1.4 - 6.5 /CUMM) 5.6 Absolute Lymphocytes (1.2 - 3.4 /CUMM) 1.0 L Absolute Monocytes (0.10 - 0.60 /CUMM) 0.5 Absolute Eosinophils (0.0 - 0.7 /CUMM) 0 Absolute Basophils (0.0 - 0.2 /CUMM) 0 Toxicology Urine Opiates Screen (>2000 NG/ML) < 100 Methadone Screen (>300 NG/ML) 58 Acetaminophen (10.0 - 30.0 ug/mL) 60.0 *H Barbiturate Screen (>200 NG/ML) < 60 Ur Phencyclidine Scrn (>25 NG/ML) < 6.00 Amphetamines Screen (>1000 NG/ML) < 100 U Benzodiazepines Scrn (>200 NG/ML) < 85 Urine Cocaine Screen (>300 NG/ML) < 50 Urine Cannabis Screen (>50 NG/ML) < 5.00 Urines Urinalysis LIGHT H Urine Color (YEL,AMB,STR) YEL Urine Clarity (CLEAR) CLEAR Urine pH (5.0 - 8.0) 7.0 Ur Specific [place] (1.001 - 1.035) 1.010 Urine Protein (NEG,<30 MG/DL) NEG Urine Ketones (NEG) NEG Urine Nitrite (NEG) NEG Urine Bilirubin (NEG) NEG Urine Urobilinogen (0.1 - 1.0 EU/dl) 0.2 Ur Leukocyte Esterase (NEG) NEG Ur Microscopic SEDIMENT EXAMINED Urine RBC (0 - 5 /HPF) 5-10 H Urine WBC (0 - 2 /HPF) RARE Ur Epithelial Cells (NONE,FEW) RARE Urine Bacteria (NEG/NONE) FEW H Urine Hemoglobin (NEG) MOD H Urine Glucose (N MG/DL) NEG 11/18 2130 Chemistry Sodium (137 - 145 mmol/L) 149 H Potassium (3.5 - 5.1 mmol/L) 3.9 Chloride (98 - 107 mmol/L) 108 H Carbon Dioxide (22 - 30 mmol/L) 27 Anion Gap (5 - 16) 14 BUN (7 - 17 mg/dL) 13 Creatinine (0.5 - 1.0 mg/dL) 0.7 Estimated GFR (>60 ml/min) > 60 BUN/Creatinine Ratio (7 - 25 %) 18.6 Glucose (65 - 99 mg/dL) 68 Calcium (8.4 - 10.2 mg/dL) 9.9 Total Bilirubin (0.2 - 1.3 mg/dL) 0.2 AST (14 - 36 U/L) 41 H ALT (9 - 52 U/L) 25 Alkaline Phosphatase (<127 U/L) 78 Total Protein (6.3 - 8.2 g/dL) 7.4 Albumin (3.5 - 5.0 g/dL) 4.2 Globulin (1.9 - 4.2 gm/dL) 3.2 Albumin/Globulin Ratio (1.1 - 2.2 %) 1.3 Total Beta HCG (NEGATIVE) NEGATIVE Hematology CBC w Diff NO MAN DIFF REQ WBC (4.8 - 10.8 /CUMM) 5.2 RBC (4.20 - 5.40 /CUMM) 4.64 Hgb (12.0 - 16.0 G/DL) 10.4 L Hct (37 - 47 %) 32.8 L MCV (81.0 - 99.0 FL) 70.6 L MCH (27.0 - 31.0 PG) 22.4 L MCHC (33.0 - 37.0 G/DL) 31.7 L RDW (11.5 - 14.5 %) 14.8 H Plt Count (130 - 400 /CUMM) 296 MPV (7.4 - 10.4 FL) 10.0 Gran % (42.2 - 75.2 %) 68.6 Lymphocytes % (20.5 - 51.1 %) 21.3 Monocytes % (1.7 - 9.3 %) 7.1 Eosinophils % (0 - 5 %) 2.5 Basophils % (0.0 - 2.0 %) 0.5 Absolute Granulocytes (1.4 - 6.5 /CUMM) 3.6 Absolute Lymphocytes (1.2 - 3.4 /CUMM) 1.1 L Absolute Monocytes (0.10 - 0.60 /CUMM) 0.4 Absolute Eosinophils (0.0 - 0.7 /CUMM) 0.1 Absolute Basophils (0.0 - 0.2 /CUMM) 0 Toxicology Salicylates (0 - 20.0 mg/dL) < 1.0 Acetaminophen (10.0 - 30.0 ug/mL) 138.0 *H Serum Alcohol (<10 MG/DL) < 10.0 Diffential Diagnosis: Major Depressive Disorder Unspecified anxiety disorder Impression: Pt with PPH of depression and anxiety no longer in treatment presenting s/p serious suicide attempt with intent to . Provisional Treatment Plan: - Pt IS danger to self. Not allowed to leave AMA. Please write PEC, which can be filled out by any licenced MD in the state of [place], if need be. Continue 1:1 - Start lexapro 5mg daily and hydroxyzine 50mg q6p anxiety - Need acute inpatient hospitalization. CPS full, psych to f/u tomorrow.
[2017-11-20 13:57] VITALS: BP 102/54
[2017-11-20 22:19] VITALS: BP 100/50
[2017-11-21 06:20] VITALS: BP 110/68
--- NOTE | 2017-11-21 07:07 | PN- Housestaff ---
Alexandro LANZA,Jerome 11/21/17 0707: Subjective Follow-up For: suicidal ideation toxic ingestin depression Subjective: mental status improved today states she started getting very negative before trying to kill herself lacks insight awaiting psych placement no overnight events Review of Systems Constitutional: Reports: see HPI. Objective Last 24 Hrs of Vital Signs/I&O Vital Signs Date Time Temp Pulse Resp B/P B/P Pulse O2 O2 Flow FiO2 Mean Ox Delivery Rate 11/22 619 98.6 62 20 110/68 98 11/20 2219 98.9 70 20 100/50 100 Room Air 11/20 1357 99.1 69 20 102/54 100 Room Air Intake & Output 11/21 1600 11/21 0800 11/21 0000 Intake Total 120 610 Output Total 375 Balance 120 235 Intake, IV 10 Intake, Oral 120 600 Number 0 Bowel Movements Output, Urine 375 Physical Exam General Appearance: Alert, Oriented X3, Cooperative, No Acute Distress Cardiovascular: Regular Rate, Normal S1, Normal S2, No Murmurs Lungs: Clear to Auscultation, Normal Air Movement Abdomen: Normal Bowel Sounds, Soft, No Tenderness, No Masses Extremities: No Clubbing, No Cyanosis, No Edema, Normal Pulses Current Medications: Current Medications Sig/Gena Start time Last Medication Dose Route Stop Time Status Admin Enoxaparin Sodium 40 MG DAILY 11/19 0900 AC 11/21 SC 0815 Escitalopram Oxalate 10 MG DAILY 11/20 1600 AC 11/21 PO 0815 Hydroxyzine HCl 50 MG TID PRN 11/20 1600 AC PO Omeprazole 40 MG DAILY AC 11/19 0700 AC 11/21 PO 0601 Ondansetron HCl 4 MG Q6P PRN 11/19 0015 AC 11/19 IV 0021 Assessment/Plan Assessment: 22 year old female with history of depression, previous suicide attempt was brought in by police with an altered mental status after an intentional toxic ingestion and apparent suicide attempt. Altered mental status: Toxic ingestion likely metabolic encephalopathy from polypharmacy tylenol PM overdose in combination with underlying psyciatric condition acetaminophen level 138, now undetectable Finished N-acetyl cysteine treatment Monitor renal function, LFTs, coags Psychiatry consultation, appreciate recommendations Continue lexapro and hydroxyzine Continue 1:1 patient safety monitor Hypernatremia: resolved with hydration Regular diet DVT ppx-ALPS, lovenox subcutaneous Full code Awaiting psychiatric inpatient bed availability Problem List: 1. Suicidal overdose 2. Depression 3. Acetaminophen overdose Pain Ratin Pain Location: n/a Pain Goal: Pain 4 or less Pain Plan: prn Tomorrow's Labs & Rationales: none Guicho Bo MD 11/21/17 1152: Attending MD Review Statement Attending Statement Attending MD Statement: examined this patient, discuss w/resident/PA/BOTTOM BRUSHER, agreed w/resident/PA/BOTTOM BRUSHER, reviewed EMR data (avail), discussed with nursing, discussed with case mgmt, amended to note Attending Assessment/Plan: Patient seen and examined. No issues overnight reported by nursing staff. Remains afebrile and hemodynamically stable. Resting comfortably and not in any acute distress. Patient had significantly better affect this morning. She actually smiled and answer questions appropriately. No at the medical issues other than underlying psychiatric condition. recommendations are for a patient psychiatric unit management. She will be transferred down once a bed is made available. Will follow other recommendations of the psychiatry service.
--- NOTE | 2017-11-21 08:30 | Discharge Summary ---
Hospital Course Allergies: Coded Allergies: NO KNOWN ALLERGIES (11/18/17)
--- NOTE | 2017-11-21 08:33 | Discharge Summary ---
Visit Information Visit Dates Admission Date: 11/18/17 Discharge Date: 11/21/2017 Hospital Course Course Attending Physician: Guicho Bo MD Primary Care Physician: Harman Ahumada DO Hospital Course: Patient is 22 year old female with past medical history significant for depression and previous suicide attempt from pill overdose and psychiatric hospitalization in 2013 was brought in by police after being found with an altered mental status after an intentional overdose. The patient was unable to provide any history and all history was obtained from ED notes and the patient's friend Ashlee, who was at the bedside and was in communication with the patient throughout the evening. She was speaking and texting with Ashlee from approximately 4-7PM this evening. The patient [place] herself [place] the [place] in [place] and ingestions an unknown quantity of an unknown pill. At 7PM, she informed her friend that she had done this. Ashlee called the police and the patient was brought into the emergency department, minimally responsive and noncommunicative and with normal vital signs except for tachycardia. Tylenol PM was found in the patient's belongings and was detectable in her drug screen. She was started on N-acetyl cysteine therapy. Collateral information was obtained from her mother. She was previously hospitalized at [facility] children psych unit in 2013. She participated in group therapy at that time. She had some aftercare at [facility] and they were considering family therapy but didn't follow through. She left [facility] in June and is now working two jobs and thinking about becoming an international student. Things were reportedly going well. She has no psychiatrist, no psych meds, or no recent therapy. She reportedly has a strained relationship with her mother and feels she isn't loved. After an argument at the house between her brother, herself, and her grandmother, she left the house before all this happened. The mother is an hour out of town and became aware her daughter was hospitalized because the police notified her grandmother. Patient stated that she was "upset" but unable to specify why and took intentional overdose with intent to . She mentioned that she is "Disappointed" that alive now and she continues to have sudden ideation. Patient was seen and treated for Possible acetaminophen overdose and suicide attempt Tachycardia which has resolved. 102 to 62 Hyponatremia which has resolved 149 to 142 Assessment and plan On admission, patient's Tylenol levels were 138, which trended down to 60 on 11/19 at 7 am and 0 on 11/19 at 4 PM. Her urine tox was negative for salicyclates, opioids, methadone, barbiturate, phencyclidine, amphetamines, benzodiazepine, cannabis, cocaine. Serum alcohol was also less than 10. For Tylenol overdose, patient was treated with N-acetyl cysteine and poison control was informed. Patient was also evaluated by psychiatry service as inpatient, and it was determined that she is not allowed to leave AMA and should be discharged to inpatient psych. Patient also had safety monitor sitter which was continued throughout her hospital stay. Patient was started on Lexapro 5 mg daily, and hydroxyzine 50 mg every 6 when necessary for anxiety. Patient also has an apparent flat affect, which makes it difficult to determine her current state of mind. Allergies: Coded Allergies: NO KNOWN ALLERGIES (11/18/17) Disposition Summary Disposition Principal Diagnosis: Acetaminophen overdose with suicide attempt Additional Diagnosis: As above Discharge Disposition: Patient will be transfered to inpatient psyc Discharge Instructions General Discharge Information Code Status: Full Code Patient's Diet: Regular diet Patient's Activity: As tolerated Follow-Up Instructions/Appts: Patient will be transferred to inpatient psych, due to recurrent suicidal ideation she is not allowed to leave AMA. Medications at Discharge Discharge Medications: Stop taking the following medications: Acetaminophen/Diphenhydramine (Tylenol Pm Ex-Strength Caplet) (Unknown Strength) TABLET ORAL Start taking the following new medications: Escitalopram Oxalate (Lexapro) 10 MG TABLET 1 Tablet ORAL DAILY Qty = 30 No Refills Comments: Last Taken: 11/22/17 Time: 08 Hydroxyzine Hydrochloride (Atarax) 50 MG TAB 1 Tablet ORAL THREE TIMES DAILY Qty = 90 No Refills Comments: NOT GIVEN Copies To: Harman Ahumada DO; Dangelo LANZA,Gale Attending MD Review Statement Documenting Attending: Guicho Bo MD Other Findings: Discharged in stable condition.
[2017-11-21] MEDS ORDERED: HYDROXYZINE HCL50 M1 PO (14:13)
[2017-11-21] MEDS ORDERED: LEXAPRO10 M1 PO (14:13)
--- NOTE | 2017-11-21 14:14 | Patient Discharge Instructions ---
Discharge Instructions General Discharge Information You were seen/treated for: suicide attempt by toxic ingestion tylenol toxicity Special Instructions: Please follow up with your primary care and psychiatrist. you are being admitted to the psychiatric unit after your suicide attempt. Please follow up with outpatient therapy and any new psychiatric medications. Acute Coronary Syndrome Inclusion Criteria At DC or during hospital stay patient has or had the following: ACS DIAGNOSIS No Discharge Core Measures Meds if any: Prescribed or Continued at Discharge Meds if any: NOT Prescribed or Continued at Discharge Congestive Heart Failure Inclusion Criteria At DC or during hospital stay patient has or had the following: CHF DIAGNOSIS No Discharge Core Measures Meds if any: Prescribed or Continued at Discharge Meds if any: NOT Prescribed or Continued at Discharge Cerebrovascular accident Inclusion Criteria At DC or during hospital stay patient has or had the following: CVA/TIA Diagnosis No Discharge Core Measures Meds if any: Prescribed or Continued at Discharge Meds if any: NOT Prescribed or Continued at Discharge Venous thromboembolism Inclusion Criteria VTE Diagnosis No VTE Type NONE VTE Confirmed by (Test) NONE Discharge Core Measures - Per Current guidelines, there needs to be overlap - treatment for the first 5 days of Warfarin therapy. - If discharged on Warfarin prior to 5 days of - overlap therapy, the patient will need to be - assessed for post discharge needs including - *Post discharge parental anticoagulation - *Warfarin and/or parental anticoagulation education - *Follow up date to check INR post discharge At least 5 days overlap therapy as Inpatient No Meds if any: Prescribed or Continued at Discharge Note: Overlap Therapy is Warfarin and Anticoagulant Meds if any: NOT Prescribed or Continued at Discharge
[2017-11-21 14:21] VITALS: BP 100/62
[2017-11-21 22:18] VITALS: BP 120/80
[2017-11-22 06:45] VITALS: BP 114/75
--- NOTE | 2017-11-22 07:14 | PN- Housestaff ---
See Addendum Subjective Follow-up For: suicide attempt, tylenol toxicity, depression Subjective: slept well overnight no complaints no side effects from lexapro still expressing SI awaiting inpatient psych Review of Systems Constitutional: Reports: see HPI. Objective Last 24 Hrs of Vital Signs/I&O Vital Signs Date Time Temp Pulse Resp B/P B/P Pulse O2 O2 Flow FiO2 Mean Ox Delivery Rate 11/22 0645 98.2 78 20 114/75 100 Room Air 11/21 2218 98.1 60 20 120/80 96 11/21 1421 98.2 74 20 100/62 100 Room Air Intake & Output 11/22 1600 11/22 0800 11/22 0000 Intake Total 260 1200 Output Total Balance 260 1200 Intake, IV 20 Intake, Oral 240 1200 Physical Exam General Appearance: Alert, Oriented X3, Cooperative, No Acute Distress Cardiovascular: Regular Rate, Normal S1, Normal S2, No Murmurs Lungs: Clear to Auscultation, Normal Air Movement Abdomen: Normal Bowel Sounds, Soft, No Tenderness, No Masses Extremities: No Clubbing, No Cyanosis, No Edema, Normal Pulses Current Medications: Current Medications Sig/Gena Start time Last Medication Dose Route Stop Time Status Admin Enoxaparin Sodium 40 MG DAILY 11/19 0900 AC 11/21 SC 0815 Escitalopram Oxalate 10 MG DAILY 11/20 1600 AC 11/21 PO 0815 Hydroxyzine HCl 50 MG TID PRN 11/20 1600 AC PO Omeprazole 40 MG DAILY AC 11/19 0700 AC 11/22 PO 0552 Ondansetron HCl 4 MG Q6P PRN 11/19 0015 AC 11/19 IV 0021 Assessment/Plan Assessment: 22 year old female with history of depression, previous suicide attempt was brought in by police with an altered mental status after an intentional toxic ingestion and suicide attempt. Altered mental status: secondary to toxic ingestion of tylenol Resolved, s/p N-acetyl cysteine treatment Acetaminophen level 138 on arrival, now undetectable No transaminitis or bilirubinemia, mildly elevated INR Depression with suicide attempt: Continue 1:1 patient safety monitor Psychiatry consultation, appreciate recommendations Tolerating lexapro and hydroxyzine without side effects Awaiting bed placement in [facility] Hypernatremia: resolved with hydration Anemia: Microcytic with low normal ferritin Start iron supplementation Regular diet DVT ppx-ALPS, lovenox subcutaneous Full code Awaiting admission to [facility] Problem List: 1. Acetaminophen overdose 2. Suicidal overdose 3. Depression Pain Ratin Pain Location: n/a Pain Goal: Pain 4 or less Pain Plan: prn Tomorrow's Labs & Rationales: none
[2017-11-22 14:18] VITALS: BP 90/50
--- NOTE | 2017-11-22 17:32 | IP CRISIS DIAG ASSESS PSYCH ---
Diagnostic Assessment Basic Assessment Insurance Authorization: Insurance #1: Insurance name: JENS Osborne C&A Phone number: Policy number: [id number] Group number: Authorization number: [id number] Jens [id number] Primary Care Physician: Patient's PCP: Harman Ahumada DO PCP's Present Illness: Pt is a 22 yo female biba to [facility] Tuesday evening after injesting 2 bottles of nyquil and 8 ibuprofens. [facility] and communicated SI to friends who contacted 911. Case reviewed with poison control and pt admitted to medical unit due to pt elevated acetaminophen level and mucomyst per protocol. Pt has a prior suicide attempt and was hospitalized at [facility] in 2013 She also has had outpatient tx at [facility]. Pt reports no recent tx and no current medications. She reports she had dropped out of college but plan to return in the fall. 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 She denies etoh and substance use. Labs were negative. She reports that family conflict is the primary stressor for her recent depressive episode. Pt reports she needs to get away from her family and has a friend who she may be able to stay with. Pt received psychiatric consultation by Dr Lowry and Dr Boo with recommendation that pt requires inpatient psychiatric treatment. Pt has signed in voluntarily for admission to [facility]. Patient's Address: [address] [place] [address] Other Phone Number: Who Do You Live With? Family Feel Safe Where You Live? No Feel Safe in Your Relationship No If No, Please Elaborate: conflict with family. Wants to move out. Marital Status: single Do You Have Children? No Primary Language? Korean Language(s) Spoken At Home: Korean Family/Informants Interviewed: pt declining family contact Allergies - Coded Allergies: NO KNOWN ALLERGIES (11/18/17) Current Medications - Scheduled Medications Escitalopram Oxalate (Lexapro) 10 MG TABLET 1 TAB PO DAILY depression #30 TAB Prescribed by Jerome Mc MD on 11/21/17 Hydroxyzine Hydrochloride (Atarax) 50 MG TAB 1 TAB PO TID depression #90 TAB Prescribed by Jerome Mc MD on 11/21/17 Discontinued Medications Acetaminophen/Diphenhydramine (Tylenol Pm Ex-Strength Caplet) (Unknown Strength) TABLET (Unknown Dose) PO UNKNOWN (Reported) Discontinued reason: Per Doctor Decision Toxicology Screen Completed? Yes Results: negative Past History Abuse/Trauma History Trauma History/Current Trauma: Denies Legal History Current Legal Status: none Psychosocial History Strengths/Capabilities: pt works two jobs. Plans to return to college in the fall. Psychiatric Treatment History Psych Treatment Psychiatric Treatment Yes ([facility] years ago) Inpatient Treatment Yes (2013 [facility]) Outpatient Treatment No (not currently) Reason for Treatment depression/SI Response to Treatment pt hasn't been in treatment since HS Diagnosis by History: MDD Unspec anxiety Risk Factors: age (under 24/over 65), high anxiety/distress, history of suicide atmpts, SA/MH hospitalized, isolate/no social support, poor impulse control, lack of outcome concern, limited support Substance Use/Abuse History Drug Use/Abuse minimum 12mo Hx Substances Used/Abused No Substance Abuse Treatment Substance Abuse Treatment Past Substance Abuse TX No Inpatient Treatment No Outpatient Treatment No Comments: pt denies substance use Education History Highest Level of Education: some college Preferred Learning Style: visual, auditory, experiential Current Mental Status Mental Status Orientation: Person, Place, Situation Affect: Flat (tearful), Hopeless Speech: WNL Neuro-vegetative: Appetite Decreased, Concentration Poor, Energy Decreased, Helpless, Loss of Interest, Sleep Disturbance Appearance Appearance- Dress/Hygiene: hospital scrubs; groomed; euthymic; glasses Behaviors Thought Process: WNL Thought Content: WNL Memory: WNL Insight: Fair SI/HI Risk Assessment - Minimum 6mo History- Past Suicidal Ideation/Attempts Yes Current Suicidal Ideation/Att No (currently denies) Past Homicidal Ideation/Att: No Current Homicidal Ideation/Attempts No Risk Factors: age (under 24/over 65), high anxiety/distress, history of suicide atmpts, SA/MH hospitalized, isolate/no social support, poor impulse control, lack of outcome concern, limited support Needs/Init TX Plan/Goals: Psychiatric Evaluation Medication Assessment Individual, Family and Group meetings Coordinated Discharge planning AUDIT-C Questionnaire: AUDIT-C Questionnaire: Response Value ETOH use in the past year Never 0 # drinks typical/day Doesn't Drink 0 6 or > drinks per occasion Never 0 Total 0 DSM5/PS Stressors/Medical Prob Diagnosis' (DSM 5, Stressors, Medical): Unspecified Depression 32.9 unspecified Anxiety F41.9 family conflict Current GAF: 25
== END 2017-11-22 21:24 | DRG 817 ==
LOC: ERH 20:38 → 2NB 22:33 → ERHI 22:33 → ENRESERV 23:20 → CANRESERV 23:20 → 2NB 11-19 00:37 → ENPENDDIS 11-22 13:41 → 2NB 11-22 21:24
PROVIDERS: Internal Medicine; Pediatrics; Student in an Organized Health Care Education/Training Program
DX: T39.1X2A Poisoning by 4-Aminophenol derivatives, intentional self-harm, initial encounter (principal); T39.312A Poisoning by propionic acid derivatives, intentional self-harm, initial encounter; F32.9 Major depressive disorder, single episode, unspecified; Z91.5 Personal history of self-harm; G92 Toxic encephalopathy; E87.0 Hyperosmolality and hypernatremia; R00.0 Tachycardia, unspecified; T14.91XA Suicide attempt, initial encounter; T45.0X2A Poisoning by antiallergic and antiemetic drugs, intentional self-harm, initial encounter; D50.9 Iron deficiency anemia, unspecified
CPT/HCPCS: 2NBP; ERO; 36415; 36592; 71045; 80307; 81001; 82436; 93005; 93010; 96374; 99291; G0480; J0132; J1650; J2405; J7060

== ENCOUNTER 2017-11-22 14:05 | Inpatient (IN) | payer OTHER ==
[~2017-11-22] VITALS: Ht 165.1 cm; Wt 66.8 kg
[~2017-11-22 14:05] MED LIST: HYDROXYZINE HCL50 M1 PO; LEXAPRO10 M1 PO; TYLENOL PM EX-1 EACH PO
[2017-11-22 22:22] VITALS: BP 124/68
[2017-11-23 07:49] VITALS: BP 106/55
--- NOTE | 2017-11-23 09:12 | CPS PROVIDER INIT ASMT PSYCH ---
Psychiatric Admission Drug Regulatory Affairs Specialist's Note Reviewed: Yes Patient Seen and Examined: Yes Identifying Information: The patient is a 22-year-old single black female Chief Complaint: The patient was admitted from the medical floor following an overdose on NyQuil and ibuprofen Reaction to Hospitalization: The patient was admitted voluntarily History of Present Illness Onset of Illness: The patient came from the medical floor. She first presented to [facility]'s emergency department this past Tuesday and (November 19, 2017) because of ingesting NyQuil gelcaps and ibuprofen tablets. Reportedly the patient communicated her suicide attempts to a friend who contacted 911. Circumstances Leading to Admission: An overdose attempt resulting in a medical admission at [facility]. Problem(s) Justifying Need for Admission: Suicide attempt by overdose Past Psychiatric History Past Diagnosis(es)- if any: Previous diagnoses unclear, the rewards consultant psychiatrist's impression was the patient was on the medical floor that the patient may suffer from a major depressive disorder and unspecified anxiety disorder Past Precipitating Factors- if any: The patient has had a previous suicide attempt resulting in an admission to [facility] in 2013 - Include inpatient and outpatient treatment Treatment History: The patient reported that she has been seeing a therapist but not on medications lately she does have a previous inpatient psychiatric admission to [facility] in 2013 and also following a suicide attempt by overdose however it did not it did not seem to be serious overdose she did not require medical admission and she reported that she discovered later later on that it was not an overdose that could have resulted in . History of Suicide Attempts or Gestures One previous attempt all the patient although the patient was waffling about whether it was an actual attempt or not Substance Abuse History: Patient denied abusing alcohol or drugs Allergies: Coded Allergies: NO KNOWN ALLERGIES (11/18/17) Home Med List: The patient was not on medications prior to her admission to the hospital - Include any medical condition(s) that may - impact the patient's recovery/remission Past Medical History: The patient was recently diagnosed with iron deficiency anemia and put on iron supplements. Past History Medical History Neurological: NONE EENT: NONE Cardiovascular: NONE Respiratory: NONE Gastrointestinal: NONE Hepatic: NONE Renal: NONE Musculoskeletal: NONE Psychiatric: bipolar disease, depression History of MRSA: No History of VRE: No History of CDIFF: No Isolation History: Standard Influenza Vaccine Status Unknown if ever received Surgical History Surgical History: non-contributory Psychiatric Family/Social Hx Family History Psychiatric Illness: The patient reports that she does not believe that psychiatric illnesses in the family although she reported that she does not know the family history in detail Substance Use: The patient reported that she does not believe there is alcoholism or substance abuse in the family Suicides: The patient seems certain that there were no suicides in the family Social History Living Situation: She was not clear on her living situations she believes that she might be living with the neighbor's or with her mother after her discharge Significant Relationships (family/friends): Mother Education: Was not explored Vocation/Occupation: Was not explored Legal: Was not explored Healthly Behaviors Screening Tobacco Screening Tobacco Use from ED Docu: Never used - If tobacco counseling indicated - the following topics are required. - #1 Recognizing dangerous situations. - #2 Coping Skills. - #3 Basic information about quitting. Status of Tobacco Cessation Counseling: Not Applicable Cessation Med Status Not Applicable Alcohol Screening - ETOH screen POS if BAL >=80 or Audit-C>= M4/F3 Audit-C Score from Diag Assess: 0 Blood Alcohol Level: BAL < 10 mg /dL Alcohol Use Screening Results: Neg per Audit C &/or BAL - If ETOH counseling indicated - the following topics are required. - #1 Express concern about the patient's - drinking at unhealthy levels, include informing - of national norms for moderate drinking: - men <= 14 drinks/week, max 4 drinks/occasion - women <= 7 drinks/week, max 3 drinks/occasion - #2 Providing feedback, including linking alcohol to - negative physical effects (liver injury, hypertension) - negative emotional effects (relationship problems and - depression) - negative occupational consequences (reduced work - performance) - #3 Advising the patient to abstain from alcohol or - to drink below national norms for moderate drinking - (as listed above). Status of ETOH Use Counseling: N/A B/C NO ETOH Use Metabolic Screening - Screen if on a Neuroleptic Medication - Metabolic screening should include: - Blood Pressure, BMI, Glucose or Hgb A1c, & a - Lipid profile from within the past 365 days. Metabolic Screening ([X]) Not Applicable, patient not on a neuroleptic. Exam and Plan Mental Status Examination Ambulation Status: The patient had a steady gait. Appearance: Unremarkable appearance. Attitude towards examiner: She was calm and cooperative. Psychomotor activity: Showed normal psychomotor activity. Behavior: No abnormal or bizarre behaviors. Quality of speech: Normal speech Affect: Good range of affect Mood: Denied feeling depressed. Suicidal Ideation: Denied thoughts of suicide. Homicidal Ideation: Denied thoughts of homicide or violence. Hallucinations: She denied hallucinations. Paranoid/Delusional Material: She denied feeling paranoid, there were no delusions during the interview. Difficulties with thought organization: Patient was coherent, there was no thought disorder. Insight: Patient seems to have good insight. Judgment: She showed good judgment in hypothetical situations. Orientation: She was alert and oriented to time, place, and person. Cognition: The patient showed good attention and concentration. There were no difficulties with information processing. Memory Function: The patient did not seem to have any short-term memory impairments. Estimate of intellectual functioning: Average. Assets/Strengths Patient Identified Assets/Strengths: The patient seems to be intelligent, has a supportive mother, and likable Impression/Plan Impression and Plan: 22-year-old single black female who was admitted from the medical floor following a suicide attempt. Patient seems to have showed significant improvement in her mood and seems to have a shift in her mindset she is more hopeful and future oriented and denies thinking of suicide denies wishing and does not seem to have any psychotic symptoms - Include all active medical diagnosis that require tx DSM 5 Diagnosis(es): Unspecified depressive disorder Unspecified anxiety disorder Rule out disruptive mood dysregulation disorder Rule out other specified personality disorder with borderline traits. - Initial Tx Plan for Active Psych & Medical Conditions Treatment Plan: Inpatient psychiatric care with safety checks every 15 minutes Continue Lexapro 10 mg daily Biopsychosocial assessment by social media assistant, collateral information, family meeting, aftercare planning Group therapy, milieu therapy, activity therapy Nursing assessments, vital signs, and patient education and Patient will be evaluated daily by a psychiatrist for mental status evaluations and medication management. - Factors that would help patient function - in a less restrictive setting. Factors: The patient will be discharge if she continues to deny thoughts of suicide over the weekend
[2017-11-23 12:11] VITALS: BP 126/66
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
[2017-11-23 16:17] VITALS: BP 112/55
--- NOTE | 2017-11-23 16:18 | PN- Att Addend ---
Attending Addendum Attending Brief Note Brief Medical Admit Note- Transferred from Medical Service S: The patient is a 22 yo female with h/o depression originally admitted to the medical service on 11/19/17 after presenting in the ED after overdose of NyQuil and Ibuprofen. She had tachycardia and altered mental status with hypernatremia (147) on admission. She had a previous psych admission at [facility] in 2013 for depression. Once medically stable after the overdose she was transferred to psychiatry/[facility] for further evaluation. At the time of my exam she had no complaints. O: VS: Vital Signs Date Time Temp Pulse Resp B/P B/P Pulse O2 O2 Flow FiO2 Mean Ox Delivery Rate 11/23 1934 98.7 73 124/74 11/23 1617 63 112/55 Current Medications Sig/Gena Start time Last Medication Dose Route Stop Time Status Admin Al Hydroxide/Mg 30 ML Q4-6 PRN PRN 11/22 1445 AC Hydroxide PO Benztropine Mesylate 1 MG Q6P PRN 11/22 1445 AC PO Benztropine Mesylate 1 MG Q6P PRN 11/22 1445 DC IM Escitalopram Oxalate 10 MG 0800 11/23 0800 AC 11/23 PO 0751 Ferrous Sulfate 325 MG DAILY 11/23 0900 AC 11/23 PO 0751 Gabapentin 300 MG Q6P PRN 11/22 1445 AC PO Haloperidol 5 MG Q6P PRN 11/22 1445 AC PO Haloperidol 5 MG Q6P PRN 11/22 1445 DC IM Lorazepam 2 MG Q6P PRN 11/22 1445 DC IM Magnesium Hydroxide 30 ML AT BEDTIME PRN 11/22 1445 AC PO Multivitamins 1 TAB DAILY 11/23 0900 AC 11/23 PO 0751 Trazodone HCl 50 MG AT BEDTIME NEED.. 11/22 1445 AC PO Physical Exam: HEENT: eyes- PERRLA, EOMI torie- moist mucosa Neck: no adenopathy or JVD Chest: clear Cor: RRR nl S1, S2 w/o murm Abd: BS+, soft, NT Ext: no edema, pulses 2+ Impression/Plan: #Depression- as above, patient was originally on medical service post drug ingestion. Plan: Admit to [facility]/Psychiatry. Psych follow-up this admission and discuss options. #S/P Ingestion/Overdose- stable medically for [facility]. Had altered mental status, hypernatremia that have resolved. Plan: Agree with care plan on [facility].
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
[2017-11-23 19:34] VITALS: BP 124/74
--- NOTE | 2017-11-24 02:46 | CP S[facility] PROGRESS NOTE PSYCH ---
Psych (Inpt) Progress Note Progress Note Vital Signs Date Time Temp Pulse B/P 11/24 0729 97.3 92 122/71 11/23 1934 98.7 73 124/74 11/23 1617 63 112/55 Mental Status Examination: The patient was alert and oriented to time, place, and person. She was calm and cooperative. Showed normal psychomotor activity. No abnormal or bizarre behaviors. Normal speech, she showed good range of affect, she denied feeling depressed. The patient denied thoughts of suicide, denied thoughts of homicide or violence. She denied hallucinations. She denied feeling paranoid, there were no delusions during the interview. Patient was coherent, there was no thought disorder. She was alert and oriented to time, place, and person. The patient showed good attention and concentration. There were no difficulties with information processing. The patient did not seem to have any short-term memory impairments. Assessment: Pt. is a 22-year-old single black female who was admitted to the inpatient psychiatric unit from the medical floor following a suicide attempt. Patient seems to have showed significant improvement in her mood and seems to have a shift in her mindset she is more hopeful and future oriented and denies thinking of suicide denies wishing and does not seem to have any psychotic symptoms Diagnoses: Unspecified depressive disorder Unspecified anxiety disorder Rule out disruptive mood dysregulation disorder Rule out other specified personality disorder with borderline traits. Treatment Plan Update: Continue Lexapro 10 mg daily Average. Assessment: 22-year-old single black female who was admitted from the medical floor following a suicide attempt. Patient seems to have showed significant improvement in her mood and seems to have a shift in her mindset she is more hopeful and future oriented and denies thinking of suicide denies wishing and does not seem to have any psychotic symptoms Diagnoses: Unspecified depressive disorder Unspecified anxiety disorder Rule out disruptive mood dysregulation disorder Rule out other specified personality disorder with borderline traits. Treatment Plan: Inpatient psychiatric care with safety checks every 15 minutes Continue Lexapro 10 mg daily Biopsychosocial assessment by forensic social worker, collateral information, family meeting, aftercare planning Group therapy, milieu therapy, activity therapy Nursing assessments, vital signs, and patient education and Patient will be evaluated daily by a psychiatrist for mental status evaluations and medication management.
[2017-11-24 07:29] VITALS: BP 122/71
[2017-11-24 12:20] VITALS: BP 114/61
[2017-11-24 16:00] VITALS: BP 121/67
--- NOTE | 2017-11-24 18:21 | SOCIAL WORKER PROG NOTE PSYCH ---
Social Work Progress Note Progress Note This designer/writer met with patient. She described her mood as "good" and denied SI/HI /AH/VH. She discussed how she has not always been honest with her treators in the past, however, is being honest here about how she is feeling, mood, symptoms and safety. Patient discussed how her anxiety quickly rises and she finds it difficult to manage. She has attempted suicide in the past when experiencing this high level of anxiety. Patient was agreeable to going to [facility]. She was also agreeable to completing a safety plan template and identifying ways in which she can utilize it before her anxiety rises.
[2017-11-24 20:08] VITALS: BP 123/51
[2017-11-25 07:36] VITALS: BP 109/58
--- NOTE | 2017-11-25 08:20 | CP SOUTH PROGRESS NOTE PSYCH ---
Psych (Inpt) Progress Note Progress Note Treatment team (ARIANNA, RN, OTR/L, Activities Therapist, & Psychiatrist) discussed the Pt.'s progress, treatment plan, and aftercare plans. Vital Signs Date Time Temp Pulse B/P B/P Pulse O2 FiO2 11/25 0736 97.4 69 109/58 11/25 2007 98.0 74 123/51 11/24 1600 81 121/67 Mental Status Examination: The patient was alert and oriented to time, place, and person. She was calm and cooperative. She showed normal psychomotor activity. There were no abnormal or bizarre behaviors, Normal speech, she showed good range of affect, she denied feeling depressed, denied thoughts of suicide, denied thoughts of homicide or violence. She denied hallucinations, denied feeling paranoid, there were no delusions during the interview. Patient was coherent, there was no thought disorder. She showed good attention and concentration, there were no difficulties with information processing. The patient did not seem to have any short-term memory impairments. Assessment: Giselle is a 22-year-old Single Black Female who was admitted to the inpatient psychiatric unit from the medical floor following a suicide attempt. Patient seems to have showed significant improvement in her mood and seems to have a shift in her mindset she is more hopeful and future oriented and denies thinking of suicide denies wishing and does not seem to have any psychotic symptoms Family meeting at 1:00 PM, patient's mother did not think that she needed to be in Inpatient Psych to begin with. Diagnoses: Unspecified Depressive disorder Unspecified Anxiety disorder Rule out disruptive mood dysregulation disorder Rule out other specified personality disorder with borderline traits. Treatment Plan Update: D/C Home to follow up with Care IOP Gabapentin 300 MG Q6P PRN 11/22 1445 AC Haloperidol 5 MG Q6P PRN 11/22 1445 AC Hydrocortisone 1 LAINE TID 11/24 1002 AC 11/25 Magnesium Hydroxide 30 ML AT BEDTIME PRN 11/22 1445 AC Multivitamins 1 TAB DAILY 11/23 0900 AC 11/25 Trazodone HCl 50 MG AT BEDTIME NEED.. 11/22 144 AC
--- NOTE | 2017-11-25 12:13 | SOCIAL WORKER PROG NOTE PSYCH ---
Social Work Progress Note Progress Note This typewriter repairer met with patient. She reported her mood as "good" and denied SI/HI/ AH/VH. She expressed interest in discharging today and would like to pursue outpatient treatment at [facility], rather than . Patient identified a safety plan in which she would talk to her friend. She was also accepting of the crisis numbers and warm line numbers which will be provided at discharge. Patient shared her safety plan template, which she worked on last night. A copy has been left in her chart. Patient denied any access to weapons and stated that she only has some Tylenol at home. This typewriter repairer faxed clinical and the [facility] IOP admission form to Mary Mooney at [facility] today at 12:02pm at fax number [phone]. A vm was left for Mary at 12:05pm informing of the fax and requesting an IOP intake date. She was informed that the patient may discharge today. Dr. Kim and this typewriter repairer spoke with patient's mother, Bri Guallpa, by phone ([phone]). Lisa discussed feeling that it was unnecessary for the patient to be transferred to [facility] from the medical floor. She stated that the patient exercised "poor judgement" in her behaviors and has support at home. Bri was agreeable and supportive of the patient discharging home today. She stated that she did not want her daughter attending IOP at due to the fact that the patient works at . She was informed of the referral to [facility] in [place]. Patient joined the conversation to discuss discharge and discharge plans. She was informed that she was accepted by [facility] for IOP and an intake appointment date/time is pending. Patient's mother was informed of the Tylenol and stated that she knew where it was kept and that she would hold on to them. Patient denied having any other medications or pills at home. Patient's mother confirmed that there are no weapons in the home. Patient's mother was informed that the patient had completed the safety plan template; patient was encouraged to share this with her mother. This typewriter repairer also informed of the crisis numbers and warm lines. Patient's mother stated that the patient's grandmother would provide transportation from the hospital today and confirmed that the patient will be returning home to live with Bri after discharge. This typewriter repairer spoke with Rosemarie Mooney at [facility] regarding the IOP referral. Patient is given an intake of 12/05/17 at 9:30am and will be provided with a medication appointment during this appointment. Rosemarie stated that they do not have a DBT IOP at the [place] location (only [facility]), however, they offer outpatient DBT groups which the patient may join after IOP. Rosemarie inquired about the patient receiving a month's prescription of the medications in the event of the medication eval appointment being scheduled after 2 weeks. This was reviewed with Dr. Kim (as well as the intake date, which he approved of) who stated that he would prescribe 2 weeks of medications and also add refills. Rosemarie was informed of this, with which she was in agreement. Patient was informed of the DBT IOP at the [facility]. She stated that she was unable to go to [place] due to the distance, however, would speak with the IOP clinician about their outpatient DBT groups after completing IOP. Patient Health Summary was originally faxed at [phone], however, not all pages were sent. Patient Health Summary was refaxed and a vm was left for Mary at [facility]. Faxed Referral(s) Referred To: [facility] Transition of Care Documents sent: Health Summary Faxed to: [facility] - Mary Mooney Fax #: [phone] Faxed by: Doug Ramesh LCSW Date faxed: 11/25/17 Time Faxed: [phone]
[2017-11-25 12:19] VITALS: BP 116/59
[2017-11-25] MEDS ORDERED: FERROUS SULFAT325 M2 PO (13:45)
[2017-11-25] MEDS ORDERED: LEXAPRO10 M1 PO (13:45)
--- NOTE | 2017-11-25 13:46 | Patient Discharge Instructions ---
Psych Discharge Inst General Discharge Information Reason for Admission: overdose/suicide attempt Psy Discharge Primary Diag+ Unspecified Depressive DO Psy Discharge Secondary Diag+ Rule out Disruptive Mood Summary Tests/Major Procedures Lab Hct 33.5 % L 11/20/17 0730 Hgb 10.8 G/DL L 11/20/17 0730 MCH 22.8 PG L 11/20/17 0730 MCHC 32.2 G/DL L 11/20/17 0730 MCV 70.8 FL L 11/20/17 0730 MPV 10.9 FL H 11/20/17 0730 RDW 14.8 % H 11/20/17 0730 Studies Pending at DC: None Patient Instructions Contact Information Your Psychiatrist on [facility] was Julio LANZA,Max * If you are experiencing an emergency related to this hospitalization, please call [phone] to contact the treating psychiatrist or the psychiatrist-on- call. * To Request a copy of your medical records, please contact the Medical Records Department at [phone]. * To request results of studies pending at the time of discharge, please call [phone]. * Continue your Medications until directed to stop by your Healthcare provider. General Medication Information Please continue to take your new medications and your continued home medications , unless otherwise indicated on your discharge medication list, or unless directed by your MD or HEALTH CARE MARKETING MANAGER to stop them. Special Instructions Diet Regular Activity Normal - Tobacco Use Treatment Offered Post DC Medications Offered: Not Applicable Post DC Tobacco Treatment Plan: Not Applicable - EtOH/Drug Use D/O Treatment Offered Post DC Medications Offered: NA-No EtOH/Drug Use D/O Post DC EtOH/SubAbuse [place] Plan: NA-No EtOH/Drug Use D/O Advance Directives Does the Patient have Medical Advance Directives No/Refused further info Does Pt have Psychiatric Advance Directives? No/Refused further info Does Patient have a Designated Surrogate Decision Maker: No Information About Psychiatric Advance Directives Provided? Refused Discharge Plan Post Hospital Treatment Plan: [facility] IOP
--- NOTE | 2017-11-25 13:52 | DISCHARGE SUMMARY REPORT-PSYCH ---
Visit Information Visit Dates/Diagnosis' Admission Date: 11/22/17 Discharge Date: 11/25/17 Reason for Admission: overdose/suicide attempt Psy Discharge Primary Diag: Unspecified Depressive DO Psy Discharge Secondary Diag: Rule out Disruptive Mood Hospital Course Significant Lab Findings: Lab Hct 33.5 % L 11/20/17 0730 Hgb 10.8 G/DL L 11/20/17 0730 MCH 22.8 PG L 11/20/17 0730 MCHC 32.2 G/DL L 11/20/17 0730 MCV 70.8 FL L 11/20/17 0730 RDW 14.8 % H 11/20/1730 Course Complications: The patient did not have any complications while she was on the inpatient psychiatric unit. Consultations: Patient was on the medical floor before coming to the inpatient psychiatric unit. Please refer to the patient's electronic record for the repeated physical evaluations upstairs on the medical floor. Allergies: Coded Allergies: NO KNOWN ALLERGIES (11/18/17) Hospital Course/[place] Response: 11/23/2017: Dr. Kim's Impression and Plan: 22-year-old single black female who was admitted from the medical floor following a suicide attempt. Patient seems to have showed significant improvement in her mood and seems to have a shift in her mindset she is more hopeful and future oriented and denies thinking of suicide denies wishing and does not seem to have any psychotic symptoms Diagnoses: Unspecified depressive disorder Unspecified anxiety disorder Rule out disruptive mood dysregulation disorder Rule out other specified personality disorder with borderline traits. 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 11/24/2017: There were no changes in the patient's psychotropic medications. 11/25/2017: Mental Status Examination: The patient was alert and oriented to time, place, and person. She was calm and cooperative. She showed normal psychomotor activity. There were no abnormal or bizarre behaviors, Normal speech, she showed good range of affect, she denied feeling depressed, denied thoughts of suicide, denied thoughts of homicide or violence. She denied hallucinations, denied feeling paranoid, there were no delusions during the interview. Patient was coherent, there was no thought disorder. She showed good attention and concentration, there were no difficulties with information processing. The patient did not seem to have any short-term memory impairments. Assessment: Giselle is a 22-year-old Single Black Female who was admitted to the inpatient psychiatric unit from the medical floor following a suicide attempt. Patient seems to have showed significant improvement in her mood and seems to have a shift in her mindset she is more hopeful and future oriented and denies thinking of suicide denies wishing and does not seem to have any psychotic symptoms Family meeting at 1:00 PM, patient's mother did not think that she needed to be in Inpatient Psych to begin with. Diagnoses: Unspecified Depressive disorder Unspecified Anxiety disorder Rule out disruptive mood dysregulation disorder Rule out other specified personality disorder with borderline traits. Treatment Plan Update: D/C Home to follow up with [facility] IOP Discharge HBIPS - Tobacco Use Treatment Offered Post DC Medications Offered: Not Applicable Post DC Tobacco Treatment Plan: Not Applicable - EtOH/Drug Use D/O Treatment Offered Post DC Medications Offered: NA-No EtOH/Drug Use D/O Post DC EtOH/SubAbuse [place] Plan: NA-No EtOH/Drug Use D/O Metabolic Screening - Screen if on a Neuroleptic Medication - Metabolic screening should include: - Blood Pressure, BMI, Glucose or Hgb A1c, & a - Lipid profile from within the past 365 days. Metabolic Screening Not Applicable, patient not on a neuroleptic. Discharge Instructions General Discharge Information Multiple Neuroleptics: Not Applicable Discharge Diet Regular Discharge Activity Normal DC Disposition: Home Referrals Ordered Referrals [facility] 12/05/[address] [place] [id number] [phone] [facility] Intake Appointment: 12/05/17, at 9:30am Patient will be given a medication appointment during the IOP intake appointment. Prescriptions Stop taking the following medications: Hydroxyzine Hydrochloride (Atarax) 50 MG TAB ORAL THREE TIMES DAILY Qty = 90 Continue taking these medications: Escitalopram Oxalate (Lexapro) 10 MG TABLET 1 Tablet ORAL DAILY Qty = 30 Comments: Last Taken:11/25/17 Time: 7:30 AM This prescription has been renewed Start taking the following new medications: Ferrous Sulfate (Ferrous Sulfate) 325 MG (65 MG IRON) TABLET.DR 325 Milligram ORAL DAILY Qty = 30 No Refills Comments: Last Taken:11/25/17 Time: 7:30 AM Studies Pending at Discharge None Copies To: PRASAD Carrasco
[2017-11-25 15:59] VITALS: BP 127/56
== END 2017-11-25 17:26 | DRG 754 ==
LOC: CP SOUTH 14:05
DX: F32.9 Major depressive disorder, single episode, unspecified (principal); F34.81 Disruptive mood dysregulation disorder